=== PATIENT | male | born 1975 | race Caucasian/White ===

== ENCOUNTER 2016-03-01 16:44 | Emergency (ER) | payer OTHER ==
[~2016-03-01] VITALS: Ht 180.3 cm; Wt 101.0 kg
[~2016-03-01 16:44] MED LIST: DOXY100T PO; PRIL20TA2 PO; PROZ20CA11 PO
[2016-03-01 16:50] VITALS: BP 135/93; PULSE 75; RESP 16; TEMP 97.5; O2SAT 100
--- NOTE | 2016-03-01 16:59 | PD ---
HPI Chief Complaint: Injury Time Seen by Provider: 16:53 Travel History International Travel<30 days: No Contact w/Intl Traveler<30days: No Traveled to known affect area: No History of Present Illness HPI Patient is a 40-year-old male who was playing soccer with his children yesterday in his work boots when he stepped in a hole and twisted his ankle. He is unable to recall if there was an inversion or E version injury. He states he has been able to walk on it today however there is significant pain over the lateral malleolus. Patient states he wasn't even going to come in but his saw that his ankle is somewhat swollen and told him to come get checked out. Patient states pain is fairly mild he declines any pain medicine in the emergency department. Denies any knee pain denies any other injury. PFSH Past Medical History Cardiovascular Problems: Yes (HTN) High Cholesterol: Yes Diminished Hearing: No GERD: Yes Immunizations Current: No Social History Alcohol Use: Yes (2 BEERS/NOC) Tobacco Use: No ("DIPS") Substance Use: No Allergies-Medications (Allergen,Severity, Reaction): Coded Allergies: No Known Allergies (Verified , 03/01/16) Reported Meds & Prescriptions Reported Meds & Active Scripts Active Reported Prilosec (Omeprazole) 20 Mg Cap 20 Mg PO DAILY Sertraline (Sertraline HCl) 100 Mg Tab 100 Mg PO DAILY Amlodipine (Amlodipine Besylate) 10 Mg Tab 10 Mg PO DAILY Review of Systems Except as stated in HPI: all other systems reviewed are Neg Physical Exam Narrative GENERAL: Well-nourished, well-developed patient. SKIN: Warm and dry. HEAD: Normocephalic. EYES: No scleral icterus. No injection or drainage. NECK: Supple, trachea midline. No JVD or lymphadenopathy. CARDIOVASCULAR: Regular rate and rhythm without murmurs, gallops, or rubs. RESPIRATORY: Breath sounds equal bilaterally. No accessory muscle use. GASTROINTESTINAL: Abdomen soft, non-tender, nondistended. MUSCULOSKELETAL: No cyanosis, or edema. There is some mild swelling of the left ankle and forefoot, minimal tenderness at the tip of the lateral malleoli. Pulses motor and sensory intact range of motion is tender but intact. There is no tenderness in the proximal fibula and no tenderness at the knee. Patient is ambulatory in the emergency department. No wound and no bruising. The right ankle is within normal limits. The right knee is within normal limits. There is no tenderness to either foot. BACK: Nontender without obvious deformity. No CVA tenderness. Data Data Last Documented VS Vital Signs Date Time Temp Pulse Resp B/P Pulse Ox O2 Delivery O2 Flow Rate FiO2 03/01/16 16:50 97.5 75 16 135/93 100 Orders Ankle, Complete ([id number]) (03/01/16 ) ^ Héctor Bandage (03/01/16 17:26) MDM Medical Decision Making Medical Screen Exam Complete: Yes Emergency Medical Condition: Yes Differential Diagnosis Ankle fracture, ankle strain, ankle sprain. Narrative Course Patient roomed in the emergency department again he was offered pain medicine and declined. X-ray was obtained and shows no acute bony abnormality. This was reviewed by me. Discussed results with the patient recommended Héctor wrap and ibuprofen as well as rice therapy. 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 I discussed he needs to discuss with his c d area supervisor regarding his ankle sprain. He was ambulatory in the emergency department. Discussed return to ED criteria and follow up with his primary care physician. Diagnosis Primary Impression: Ankle sprain Qualified Code: S93.402A - Sprain of left ankle, unspecified ligament, initial encounter Patient Instructions: General Instructions, RICE Therapy (GEN) Disposition: 01 DISCHARGE HOME Condition: Stable Jefferson Chen MD Mar 01, 2016 16:59
[2016-03-01] MEDS ORDERED: AMLO10TA2 PO (17:25)
[2016-03-01] MEDS ORDERED: SERT-129 PO (17:25)
[2016-03-01] MEDS ORDERED: PRIL20CA9 PO (17:25)
--- NOTE | 2016-03-01 17:39 | RADHPO ---
EXAM DATE/TIME: 03/01/2016 17:14 [facility] COMPARISON: No previous studies available for comparison. INDICATIONS : Twisted left ankle playing soccer MEDICAL HISTORY : None. SURGICAL HISTORY : None. ENCOUNTER: Initial ACUITY: 2 days PAIN SCORE: 4/10 LOCATION: Left ankle FINDINGS: Mild soft-tissue swelling is noted involving the lateral malleolus. There is no acute fracture or di slocation. A tiny Achilles calcaneal spur is noted. CONCLUSION: 1. Mild soft-tissue swelling involving the lateral malleolus. 2. Tiny Achilles calcaneal spur. 3. No acute fracture or dislocation. Jefferson Jarvis MD on March 01, 2016 at 17:34 Board Certified Radiologist. This report was verified electronically.
== END 2016-03-01 17:45 | disposition home or self-care (01) ==
LOC: PHEFT 16:44
DX: S93.402A Sprain of unspecified ligament of left ankle, initial encounter (principal); E78.00 Pure hypercholesterolemia, unspecified; I10 Essential (primary) hypertension; X50.1XXA Overexertion from prolonged static or awkward postures, initial encounter; Y93.9 Activity, unspecified; Y92.9 Unspecified place or not applicable; Y99.9 Unspecified external cause status
CPT/HCPCS: 73610; 99283

== ENCOUNTER 2017-06-20 17:37 | Emergency (ER) | payer OTHER ==
[~2017-06-20] VITALS: Ht 180.3 cm; Wt 102.7 kg
[~2017-06-20 17:37] MED LIST changes: +AMLO10TA2 PO; -DOXY100T PO; +PRIL20CA9 PO; -PRIL20TA2 PO; -PROZ20CA11 PO; +SERT-129 PO
[2017-06-20 17:42] VITALS: BP 124/81; PULSE 109; RESP 16; TEMP 98.6; O2SAT 98
[2017-06-20] MEDS ORDERED: OMEP20TA93 PO (17:56)
[2017-06-20] MEDS ORDERED: NALT50TA3 PO (17:56)
[2017-06-20] MEDS ORDERED: TRAZ100T10 PO (17:56)
[2017-06-20] MEDS ORDERED: BUSP10TA PO (17:56)
[2017-06-20] MEDS ORDERED: CLON0.1T PO (17:56)
[2017-06-20] MEDS ORDERED: MORPHINE SULFATE 4 MG/ML INJ IM ONE (18:00)
[2017-06-20] MEDS ORDERED: ONDANSETRON ODT 4 MG TAB PO ONE (18:00)
[2017-06-20] MEDS ORDERED: SILVER SULFADIAZINE 1% CR 50 GM JAR TOPICAL ONE (18:00)
--- NOTE | 2017-06-20 18:16 | PD ---
HPI Chief Complaint: Burn Time Seen by Provider: 17:48 Travel History International Travel<30 days: No Contact w/Intl Traveler<30days: No Traveled to known affect area: No History of Present Illness HPI 42-year-old male presents to the emergency department for evaluation of a burn to his bilateral plantar feet that occurred just prior to arrival. Patient was at a truck pole. He states he has volunteered to compete so he took off his flip-flops to complete. He was barefoot on the black pavement which caused stanley to his bilateral feet. Patient states his tetanus immunization was 2 years ago. Current pain is 10/10, aching and sharp, without radiation. Exacerbating factors ambulation. No alleviating factors. Moderate severity. PFSH Past Medical History Cardiovascular Problems: No (ht of htn) High Cholesterol: Yes Diminished Hearing: No GERD: Yes Hypertension: Yes Immunizations Current: No Social History Alcohol Use: Yes (2 BEERS/NOC) Tobacco Use: Yes ("DIPS") Substance Use: No Allergies-Medications (Allergen,Severity, Reaction): Coded Allergies: No Known Allergies (Verified Adverse Reaction, Unknown, 06/20/17) Reported Meds & Prescriptions Reported Meds & Active Scripts Active Reported Naltrexone (Naltrexone HCl) 50 Mg Tab 50 Mg PO DAILY Omeprazole 20 Mg Tab 20 Mg PO DAILY Clonidine (Clonidine HCl) 0.1 Mg Tab 0.1 Mg PO BID Buspirone (Buspirone HCl) 10 Mg Tab 10 Mg PO TID Trazodone (Trazodone HCl) 100 Mg Tablet 100 Mg PO HS Sertraline (Sertraline HCl) 100 Mg Tab 100 Mg PO DAILY Review of Systems Except as stated in HPI: all other systems reviewed are Neg Physical Exam Narrative GENERAL: Well-nourished, well-developed male patient, afebrile. SKIN: Focused skin assessment warm/dry. Patient has a [-] centimeter ruptured blister to the left plantar foot and a [-] centimeter ruptured blister to the right plantar foot. Dirt and debris are noted in bilateral wounds. HEAD: Normocephalic. Atraumatic EYES: No scleral icterus. No injection or drainage. NECK: Supple, trachea midline. No JVD or lymphadenopathy. CARDIOVASCULAR: Regular rate and rhythm without murmurs, gallops, or rubs. Bilateral pedal pulses are 2+ peer RESPIRATORY: Breath sounds equal bilaterally. No accessory muscle use. Lung sounds are clear to auscultation. GASTROINTESTINAL: Abdomen soft, non-tender, nondistended. MUSCULOSKELETAL: No cyanosis, or edema. Data Data Last Documented VS Vital Signs Date Time Temp Pulse Resp B/P (MAP) Pulse Ox O2 Delivery O2 Flow Rate FiO2 06/20/17 17:42 98.6 109 16 124/81 (95) 98 Orders Orders Morphine Inj (Morphine Inj) (06/20/17 18:00) Ondansetron Odt (Zofran Odt) (06/20/17 18:00) Silver Sulfadia 1% Crm (50 Gm) (Silvaden (06/20/17 18:00) Ketorolac Inj (Toradol Inj) (06/20/17 18:30) MDM Medical Decision Making Medical Screen Exam Complete: Yes Emergency Medical Condition: Yes Medical Record Reviewed: Yes Differential Diagnosis Superficial burn versus partial thickness burn versus third-degree burn Narrative Course 42-year-old male presents to the emergency department for evaluation of stanley to his bilateral feet after competing in a truck pull just prior to arrival. Patient is on naltrexone, but has not taken in over 24 hours. Patient is given morphine 4 mg IM and Zofran 4 mg ODT for pain. He is also given Toradol 60 mg IM. Feet are soaked in saline. Stanley are debrided and Silvadene ointment is applied. Patient is on naltrexone for alcoholism. I discussed with the patient that I would not be a prescribe opiates due to him being on naltrexone. The patient states that he has not had any issues with alcohol recently he will not take the naltrexone, but he is in too much pain did not have any pain medication. His at bedside agrees that he needs pain medication and will keep an eye on him. 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 Patient is aware of the risk of coming off his naltrexone, but he wants to have pain relief. Patient will be discharged with prescription for Felt, ibuprofen, Silvadene, ciprofloxacin. He is to follow-up with his primary care physician. He is return here for any acute worsening of symptoms. The patient was discharged in stable condition with instructions, including return instructions and follow up instructions. Diagnosis Primary Impression: Partial thickness burn of left foot Qualified Codes: T25.222A - Burn of second degree of left foot, initial encounter Additional Impression: Partial thickness burn of right foot Qualified Codes: T25.221A - Burn of second degree of right foot, initial encounter Referrals: Primary Care Physician call for appointment Patient Instructions: General Instructions Departure Forms: Tests/Procedures, Work Release Enter return to work date: June 23, 2017 Additional Instructions: Take antibiotic as directed until gone. Clean twice daily with soap and water and apply Silvadene ointment. Keep clean and dry. No swimming or hot tubs until healed. Take ibuprofen as directed as needed with food for pain. Take Felt as directed as needed for moderate to severe pain. Caution this can make you drowsy so do not drive while taking. Follow-up with a primary care physician. Return to the emergency department for any acute worsening of symptoms. Med/Other Pt SpecificInfo: Prescription(s) given Scripts Hydrocodone-Acetaminophen (Felt) 5 Mg-325 Mg Tab 1 TAB PO Q6H Y for PAIN, #12 TAB 0 Refills Prov: Sherry Ftaima 06/20/17 Ciprofloxacin (Cipro) 500 Mg Tab 500 MG PO BID for Infection for 10 Days, #20 TAB 0 Refills Prov: Sherry Fatima 06/20/17 Silver Sulfadiazine Topical (Silvadene Topical) 1 % Cream 1 APPLIC TOPICAL BID for Wound Management, #400 GM 0 Refills Prov: Sherry Fatima 06/20/17 Ibuprofen (Ibuprofen) 800 Mg Tab 800 MG PO TID Y for PAIN SCALE 1 TO 10, #21 TAB 0 Refills Prov: Sherry Fatima 06/20/17 Disposition: 01 DISCHARGE HOME Condition: Stable Sherry Fatima Jun 20, 2017 18:16
[2017-06-20] MEDS ORDERED: KETOROLAC TROMETHAMINE 60 MG/2 ML (IM) VIAL IM ONE (18:30)
[2017-06-20] MEDS ORDERED: SILV1CRE20 TOPICAL (18:33)
[2017-06-20] MEDS ORDERED: CIPR-9 PO (18:33)
[2017-06-20] MEDS ORDERED: IBUP1TAB7 PO (18:33)
[2017-06-20] MEDS ORDERED: NORC5TAB PO (18:58)
== END 2017-06-20 19:09 | disposition home or self-care (01) ==
LOC: PHEFT 17:37
DX: T25.222A Burn of second degree of left foot, initial encounter (principal); T25.221A Burn of second degree of right foot, initial encounter; I10 Essential (primary) hypertension; E78.00 Pure hypercholesterolemia, unspecified; K21.9 Gastro-esophageal reflux disease without esophagitis; F17.220 Nicotine dependence, chewing tobacco, uncomplicated; X19.XXXA Contact with other heat and hot substances, initial encounter; Z79.899 Other long term (current) drug therapy
CPT/HCPCS: 16000; 96372; 99283; J1885; J2270